=== PATIENT | male | born 1965 | race Caucasian/White ===

== ENCOUNTER 2024-01-07 06:50 | Day surgery (SDC) | payer BC ==
[~2024-01-07] VITALS: Ht 170.2 cm; Wt 110.1 kg
[~2024-01-07 06:50] MED LIST: GABA100 PO; HYDCHL25 PO; LISI5 PO
[2024-01-07] MEDS ORDERED: propofoL 50 ML IV ONE (07:02)
[2024-01-07] MEDS ORDERED: Lactated Ringer's 1,000 ML IV ONE ×2 (07:02→07:44)
[2024-01-07] MEDS ORDERED: MELO7.5 (07:21)
--- NOTE | 2024-01-07 07:45 | NUR ---
01/07/24 0745 JESSICA NICHOLE PT PROVIDED WITH WARM BLANKETS, CALL LIGHT AT SIDE, LIGHTS DIMMED. PT RESTING
[2024-01-07] MEDS ORDERED: Glycopyrrolate 0.2 MG/ML 1MLVIAL ONE (08:02)
[2024-01-07] MEDS ORDERED: ePHEDrine Sulfate 50 MG/ML 1ML Injection ONE (08:04)
[2024-01-07] MEDS ORDERED: Ondansetron HCl 2 MG / ML 2ML Vial ONE (08:12)
[2024-01-07 09:14] VITALS: BP 108/62
== END 2024-01-07 08:55 | disposition home or self-care (01) ==
LOC: ORSCSDS 06:50
PROVIDERS: Specialist
PROC: 0DBL8ZX Excision of Transverse Colon, Via Natural or Artificial Opening Endoscopic, Diagnostic (ICD-10-PCS; principal; 2024-01-07 08:00)
DX: Z12.11 Encounter for screening for malignant neoplasm of colon (principal); Z86.010 Personal history of colon polyps; K63.5 Polyp of colon; K57.30 Diverticulosis of large intestine without perforation or abscess without bleeding; K64.8 Other hemorrhoids; G47.33 Obstructive sleep apnea (adult) (pediatric); I10 Essential (primary) hypertension; E78.5 Hyperlipidemia, unspecified; E66.9 Obesity, unspecified; Z68.38 Body mass index [BMI] 38.0-38.9, adult; Z87.891 Personal history of nicotine dependence; J45.909 Unspecified asthma, uncomplicated; Z79.899 Other long term (current) drug therapy
CPT/HCPCS: 88305; J2405; J2704; J7120

== ENCOUNTER 2024-07-21 09:11 | Day surgery (SDC) | payer BC ==
[~2024-07-21] VITALS: Ht 170.2 cm; Wt 113.0 kg
[2024-07-21] VITALS (17 sets, daily range): BP systolic 95–141; BP diastolic 51–85
[~2024-07-21 09:11] MED LIST changes: +CeFAZolin Sodium 2,000 MG in NS 100 ML IV SCH; +Lactated Ringer's 1,000 ML IV SCH; +MELO7.5 PO
[2024-07-21] MEDS ORDERED: LORA.5 PO (09:38)
[2024-07-21] MEDS ORDERED: Bupivacaine 0.5% HCl 5 MG/ML 30MLVIAL ONE (09:38)
[2024-07-21] MEDS ORDERED: ALBU90OI INH (09:39)
[2024-07-21] MEDS ORDERED: ALBU2.5V5 INH (09:41)
[2024-07-21] MEDS ORDERED: TRAZ50 PO (09:41)
[2024-07-21] MEDS ORDERED: Ipratropium/Albuterol SulF 2.5-0.5MG/3 ML Amp INH ONE (09:50)
[2024-07-21] MEDS ORDERED: propofoL 40 ML IV ONE (10:17)
[2024-07-21] MEDS ORDERED: FentaNYL Citrate 50 MCG/ML 2 ML Injection ONE ×2 (10:18→13:12)
--- NOTE | 2024-07-21 10:28 | NUR ---
PATIENT GAVE HIS HAT, GLASSES AND PHONE TO HIS , JOCE, FOR SAFE KEEPING. CLOTHING PLACED UNDER GURNEY IN LABELED PATIENT BELONGING BAG. Patient States Post-Procedure ride home has been arranged with his .
--- NOTE | 2024-07-21 10:31 | NUR ---
History, Chart, Medications and Allergies reviewed before start of procedure. Patient confirms NPO status and agrees with scheduled surgery.
[2024-07-21] MEDS ORDERED: Dexamethasone Sod Phos 10 MG/ML 1ML VIAL ONE (10:48)
[2024-07-21 10:55] LABS: Bun/Creatinine Ratio 21.9 (12.0-20.0); Calcium, Blood 8.5 mg/dL (8.5-10.1); Creatinine, Blood 0.96 mg/dL (0.60-1.20); Potassium, Blood 3.9 mmol/L (3.5-5.5)
[2024-07-21] MEDS ORDERED: Glycopyrrolate 0.2 MG/ML 5ML VIAL ONE (11:03)
--- NOTE | 2024-07-21 11:28 | NUR ---
07/21/24 1128 Moises,Caitlyn PADGETT CATHETER ATTEMPTED UPON ARRIVAL TO OR. UNABLE TO GET URINE RETURN. PADGETT REMOVED.
[2024-07-21] MEDS ORDERED: Sugammadex Sodium 200 MG/2ML SDV (100 MG/ML) ONE (12:13)
[2024-07-21] MEDS ORDERED: Ondansetron HCl 2 MG / ML 2ML Vial ONE (12:13)
[2024-07-21] MEDS ORDERED: OxyCODONE 5 mg/Acetamin 325 mg TABLET PO PRN (12:35)
[2024-07-21] MEDS ORDERED: Ketorolac Tromethamine 30mg Vial ONE (13:12)
--- NOTE | 2024-07-21 14:56 | NUR ---
Discharge instructions reviewed with patient. Patient verbalizes understanding. Copy given to patient to take home. Patient States Post-Procedure ride home has been arranged. SCROTAL SUPPORT AND ICE PACK PROVIDED.
== END 2024-07-21 23:20 | disposition home or self-care (01) ==
LOC: ORSCMMR 09:11 → ORD 10:15 → ORSCMMR 10:15
PROVIDERS: Surgery
DX: K40.90 Unilateral inguinal hernia, without obstruction or gangrene, not specified as recurrent (principal); I10 Essential (primary) hypertension; J45.909 Unspecified asthma, uncomplicated; G47.33 Obstructive sleep apnea (adult) (pediatric); E66.01 Morbid (severe) obesity due to excess calories; Z68.38 Body mass index [BMI] 38.0-38.9, adult; Z79.899 Other long term (current) drug therapy; Z87.891 Personal history of nicotine dependence
CPT/HCPCS: 80048; 93005; 93010; A9270; C1781; J0690; J1100; J1885; J2405; J2704; J3010; J7120

== ENCOUNTER 2024-12-01 10:09 | Emergency (ER) | payer BC ==
[~2024-12-01] VITALS: Ht 177.8 cm; Wt 104.3 kg
[~2024-12-01 10:09] MED LIST changes: +ALBU2.5V5 INH; +ALBU90OI INH; -CeFAZolin Sodium 2,000 MG in NS 100 ML IV SCH; +LORA.5 PO; -Lactated Ringer's 1,000 ML IV SCH; +TRAZ50 PO
[2024-12-01 10:19] VITALS: BP 155/103
[2024-12-01] MEDS ORDERED: HYDROmorphone HCl/Pf 1MG SYR IM ONE (10:30)
[2024-12-01] MEDS ORDERED: Amoxicillin875 MG PO (11:01)
[2024-12-01] MEDS ORDERED: CIPHYDOTSU TOP (11:04)
== END 2024-12-01 11:26 | disposition home or self-care (01) ==
LOC: ER 10:09
DX: H72.92 Unspecified perforation of tympanic membrane, left ear (principal); H66.92 Otitis media, unspecified, left ear; I10 Essential (primary) hypertension; E78.5 Hyperlipidemia, unspecified; G47.33 Obstructive sleep apnea (adult) (pediatric); Z79.899 Other long term (current) drug therapy
CPT/HCPCS: 96372; 99282-25; J1171

== ENCOUNTER → 2024-12-08 | Outpatient (CLI) | payer BC ==
[~2024-12-08] MED LIST changes: +Amoxicillin875 MG PO; +CIPHYDOTSU TOP
== END ==
LOC: LAB 10:54 → LAB SHORT 10:54
DX: H60.392 Other infective otitis externa, left ear (principal)
CPT/HCPCS: 87070; 87147; 87205

== ENCOUNTER → 2024-12-09 | Outpatient (CLI) | payer BC | END | disposition home or self-care (01) | LOC: LAB SHORT 16:49 → LAB 16:49 | DX: H66.92 Otitis media, unspecified, left ear (principal); H60.392 Other infective otitis externa, left ear | CPT/HCPCS: 86335 ==

== ENCOUNTER → 2024-12-11 | Outpatient (CLI) | payer BC | END | disposition home or self-care (01) | LOC: LAB SHORT 15:30 → LAB 15:30 | DX: H60.392 Other infective otitis externa, left ear (principal) | CPT/HCPCS: 86335 ==

== ENCOUNTER 2025-06-08 06:23 | Day surgery (SDC) | payer BC ==
[~2025-06-08] VITALS: Ht 170.2 cm; Wt 109.6 kg
[~2025-06-08 06:23] MED LIST changes: +CeFAZolin Sodium 2,000 MG VIAL ONE
[2025-06-08] MEDS ORDERED: CLONIDINE (06:41)
[2025-06-08] MEDS ORDERED: MELATONIN1 M1 (06:42)
[2025-06-08] MEDS ORDERED: Ondansetron HCl 2 MG / ML 2ML Vial ONE (06:45)
[2025-06-08] MEDS ORDERED: Midazolam HCl 1MG / ML 2ML Vial ONE (06:45)
[2025-06-08] MEDS ORDERED: Dexamethasone Sod Phos 10 MG/ML 1ML VIAL ONE (06:45)
[2025-06-08] MEDS ORDERED: FentaNYL Citrate 50 MCG/ML 2 ML Injection ONE (06:45)
[2025-06-08] MEDS ORDERED: Ketorolac Tromethamine 30mg Vial ONE (06:45)
[2025-06-08] MEDS ORDERED: Rocuronium Bromide 10 MG/ML 5ML Injection IV ONE (06:45)
[2025-06-08] MEDS ORDERED: Tranexamic Acid 100 ML IV ONE (07:06)
--- NOTE | 2025-06-08 07:34 | NUR ---
06/08/25 0734 Yamileth Pruitt BLOCK TIME AT 0725 BLOCK START AT 0726. BLOCK END AT 07.
[2025-06-08] MEDS ORDERED: Bupivacaine 0.5% HCl 5 MG/ML 30MLVIAL ONE (08:07)
--- NOTE | 2025-06-08 10:27 | NUR ---
06/08/25 [email or web address] Sindhu Zamarripa TRSFR TO STEPDOWN 1000, REPORT TO CT RN FOR BREAK COVG. RESUMED CARE OF PT 1015. PT SLEEPING, SNORING, VSS 1L NC, AROUSABLE TO LOUD VOICE. DENIES PAIN, STATES SOME TINGLING IN ARM
--- NOTE | 2025-06-08 10:45 | NUR ---
06/08/25 1045 Sindhu Zamarripa REC'D PT FROM OR INTO PACU. PT SEDATED, NO AIRWAY PRESENT, NRB APPLIED. DSG CDI. RBB SINUS AVERY ON EKG, ANESTHESIA AWARE. UPON AROUSING, PT AGITATED, BATTING OFF O2 MASK , GROANING BUT DENIES PAIN. REASSURANCE PROVIDED. INTMT APNEA WHEN ASLEEP, OCCASIONAL JAW THRUST APPLIED WHEN AROUSABLE AND FOLLOWING COMMANDS, TRSFR TO STEPDOWN. REPORT TO TUSHAR FOFANA FOR BREAK COVG.
[2025-06-08 11:45] VITALS: BP 131/74
== END 2025-06-08 11:45 | disposition home or self-care (01) ==
LOC: ORSCSDS 06:23
PROVIDERS: Orthopaedic Surgery Sports Medicine
PROC: 0LM14ZZ Reattachment of Right Shoulder Tendon, Percutaneous Endoscopic Approach (ICD-10-PCS; principal; 2025-06-08 07:30)
DX: M75.121 Complete rotator cuff tear or rupture of right shoulder, not specified as traumatic (principal); M75.31 Calcific tendinitis of right shoulder; I10 Essential (primary) hypertension; J45.909 Unspecified asthma, uncomplicated; G47.33 Obstructive sleep apnea (adult) (pediatric); F17.220 Nicotine dependence, chewing tobacco, uncomplicated; E66.9 Obesity, unspecified; Z68.37 Body mass index [BMI] 37.0-37.9, adult
CPT/HCPCS: A9270; C1713; J0165; J0690; J1100; J1885; J2250; J2405; J2704; J3010; J7120